=== PATIENT | female | born 1990 | race African-American/Black ===

== ENCOUNTER 2018-08-22 18:27 | Inpatient (IN) | payer OTHER | END 2018-08-25 14:45 | disposition home or self-care (01) | LOC: OVERFLOW 08-23 04:44 → WEST WING 08-24 08:00 → ER 18:27 → WEST WING 08-23 08:07 | DX: N73.9 Female pelvic inflammatory disease, unspecified (principal); N39.0 Urinary tract infection, site not specified; N70.93 Salpingitis and oophoritis, unspecified ==

== ENCOUNTER 2018-09-14 10:55 | Emergency (ER) | payer OTHER ==
[~2018-09-14] VITALS: Ht 162.6 cm; Wt 59.9 kg
[2018-09-14] MEDS ORDERED: SODIUM CHLORIDE 0.9% 1,000 ML IVB ONE (11:09)
[2018-09-14] MEDS ORDERED: ONDANSETRON HCL 4 MG/2 ML VIAL IV ONE (11:15)
[2018-09-14] MEDS ORDERED: MORPHINE SULFATE 4 MG/ML SYR/VIAL IV ONE (11:15)
[2018-09-14 12:05] LABS: Basophils # (auto) 0.1 uL; Eosinophils # (auto) 0 uL; Eosinophils % (auto) 0.6 % (0.0-7.0); Hemoglobin 13.3 g/dL (12.2-16.2); Lymphocytes # (auto) 1.1 uL; Mean Corpuscular Hgb Conc. 33.2 g/dL (32.0-36.0); Mean Corpuscular Volume 87.2 fL (80.0-100.0); Monocytes # (auto) 0.4 uL; Neutrophils # (auto) 4.5 uL; Neutrophils % (auto) 73.4 % (37.0-80.0); Platelet Count (auto) 259 10^3/uL (140-450); Red Blood Cells 4.59 10^6/uL (4.0-5.20); Red Cell Distribution Width 15.1 % (11.8-14.3); White Blood Cell 6.1 10^3/uL (4.4-10.8)
[2018-09-14 12:21] LABS: Albumin 3.9 g/dL (3.4-5.0); Calcium 9.5 mg/dL (8.5-10.1); Potassium 3.7 mmol/L (3.5-5.1)
[2018-09-14 12:24] LABS: BUN/Creatinine Ratio 11.2; Bilirubin, Total 0.6 mg/dL (0.2-1.0); Total Protein 8.7 g/dL (6.4-8.2)
[2018-09-14 13:48] LABS: Urine WBC None Seen /hpf (0 - 5)
[2018-09-14 13:51] VITALS: BP 101/51
[2018-09-14 13:59] LABS: Urine Bacteria NONE SEEN /hpf (None Seen); Urine Blood Negative /uL (Negative); Urine Specific Gravity 1.005 (1.001-1.035)
== END 2018-09-14 14:44 | disposition home or self-care (01) ==
LOC: ER 10:57
DX: R10.30 Lower abdominal pain, unspecified (principal); R11.0 Nausea
CPT/HCPCS: 36415; 76830; 76856; 80053; 81001; 85025; 94761; 96374; 96375; 99284; J2270; J2405; J7030

== ENCOUNTER 2019-02-27 15:43 | Observation (INO) | payer OTHER ==
[2019-02-27] MEDS ORDERED: PREN-96 PO (16:46)
== END 2019-02-27 17:30 | disposition home or self-care (01) | DRG 566 ==
LOC: ER 15:43 → LDRP 16:18
PROVIDERS: ADMIT Obstetrics & Gynecology; ATTEND Obstetrics & Gynecology
DX: O26.892 Other specified pregnancy related conditions, second trimester (principal); Z3A.21 21 weeks gestation of pregnancy
CPT/HCPCS: 59025; 76815; 81002; 99284; G0378